=== PATIENT | female | born 1975 | race Caucasian/White ===

== ENCOUNTER → 2022-01-10 | Outpatient (CLI) | payer BC, OTHER | LOC: M PLARAD 08:12 | PROVIDERS: ATTEND Orthopaedic Surgery | DX: M51.37 Other intervertebral disc degeneration, lumbosacral region (principal); M43.16 Spondylolisthesis, lumbar region ==

== ENCOUNTER → 2025-02-08 | Outpatient (CLI) | payer BC | LOC: M WHC 07:17 | PROVIDERS: ATTEND Physician Assistant | DX: Z13.820 Encounter for screening for osteoporosis (principal); C50.919 Malignant neoplasm of unspecified site of unspecified female breast ==